=== PATIENT | male | born 1995 | race Two or more races ===

== ENCOUNTER 2022-05-05 07:48 | Emergency (ER) | payer OTHER ==
[~2022-05-05] VITALS: Ht 175.3 cm; Wt 83.9 kg
== END 2022-05-05 09:15 | disposition designated cancer center or children's hospital (05) ==
LOC: ER 07:48
DX: T20.09XA Burn of unspecified degree of multiple sites of head, face, and neck, initial encounter (principal); Y27.8XXA Contact with other hot objects, undetermined intent, initial encounter; Y93.G3 Activity, cooking and baking; Y92.69 Other specified industrial and construction area as the place of occurrence of the external cause; Z91.013 Allergy to seafood